=== PATIENT | female | born 1995 | race Caucasian/White ===

== ENCOUNTER 2018-01-31 01:01 | Emergency (ER) | payer SELFPAY ==
[~2018-01-31] VITALS: Ht 157.5 cm; Wt 72.7 kg
[2018-01-31 01:08] VITALS: BP 144/96
== END 2018-01-31 01:25 | disposition left against medical advice (07) ==
LOC: EMS 01:02
DX: R06.02 Shortness of breath (principal); Z53.21 Procedure and treatment not carried out due to patient leaving prior to being seen by health care provider
CPT/HCPCS: 93005